=== PATIENT | female | born 1960 | race Hispanic/Latino ===

== ENCOUNTER 2018-12-26 10:42 | Emergency (ER) | payer OTHER ==
[2018-12-26 10:46] VITALS: BMI 34.3
[2018-12-26] MEDS ORDERED: Labetalol 25mg/5ml Syringe IVP STA (13:39)
[2018-12-26] MEDS ORDERED: Labetalol 5mg/ml (4ml) ONE (14:02)
[2018-12-26 14:21] LABS: BASO # 0.1 K/uL (0.0-0.2); BASO % 0.5 % (0.0-2.0); EOS # 0.1 K/uL (0.0-0.7); EOS % 1.1 % (0.0-4.0); LYMPH # 2.1 K/uL (1.0-4.3); LYMPH % 21.8 % (20.0-40.0); MEAN CELL VOLUME 100.6 fL (81.0-99.0); MEAN CORPUSCULAR HEMOGLOBIN 34.1 pg (27.0-31.0); MEAN CORPUSCULAR HGB CONC 33.9 g/dL (33.0-37.0); MEAN PLATELET VOLUME 9.5 fL (7.2-11.7); MONO # 0.7 K/uL (0.0-0.8); MONO % 7.6 % (0.0-10.0); NEUT # 6.6 K/uL (1.8-7.0); NRBC % 0.1 % (0.0-2.0); RBC 5.21 Mil/uL (3.80-5.20); RED CELL DISTRIBUTION WIDTH 13.9 % (11.5-14.5); WHITE BLOOD COUNT 9.6 K/uL (4.8-10.8)
[2018-12-26 14:23] LABS: HEMOGLOBIN 17.8 g/dL (11.0-16.0)
--- NOTE | 2018-12-26 14:24 | RAD ---
Date of service: 12/26/2018 PROCEDURE: CHEST RADIOGRAPH, 1 VIEW HISTORY: HTN, nausea COMPARISON: 06/13/2013 FINDINGS: LUNGS: Clear. PLEURA: No pneumothorax or pleural fluid seen. CARDIOVASCULAR: No aortic atherosclerotic calcification present. Normal. OSSEOUS STRUCTURES: No significant abnormalities. VISUALIZED UPPER ABDOMEN: Normal. OTHER FINDINGS: None. IMPRESSION: No active disease.
[2018-12-26 14:35] LABS: SQUAMOUS EPITHIAL 2 /hpf (0-5); URINE AMORPHOUS SEDIMENT RARE /ul (<OCC); URINE BACTERIA MOD (<OCC); URINE BILIRUBIN NEGATIVE (NEGATIVE); URINE BLOOD NEGATIVE (NEGATIVE); URINE CLARITY Hazy (Clear); URINE COLOR Amber (YELLOW); URINE GLUCOSE (UA) NORMAL (Normal); URINE LEUKOCYTE ESTERASE 2+ Leu/uL (Negative); URINE PROTEIN NEGATIVE (NEGATIVE); URINE UROBILINOGEN NORMAL mg/dL (0.2-1.0)
[2018-12-26 14:36] LABS: ALB/GLOB RATIO 1.5 (1.0-2.1); ALBUMIN 4.4 g/dL (3.5-5.0); ALT/SGPT 17 U/L (9-52); AST/SGOT 23 U/L (14-36); BLOOD UREA NITROGEN 25 mg/dL (7-17); CALCIUM 9.9 mg/dl (8.6-10.4); GFR NON-AFRICAN AMERICAN 57; LIPASE 41 U/L (23-300)
--- NOTE | 2018-12-26 14:40 | CT ---
Date of service: 12/26/2018 PROCEDURE: CT HEAD WITHOUT CONTRAST. HISTORY: Hypertension, ANDRADE COMPARISON: None available. TECHNIQUE: Axial computed tomography images were obtained through the head/brain without intravenous contrast. Radiation dose: Total exam DLP = 1175.48 mGy-cm. This CT exam was performed using one or more of the following dose reduction techniques: Automated exposure control, adjustment of the mA and/or kV according to patient size, and/or use of iterative reconstruction technique. FINDINGS: HEMORRHAGE: No intracranial hemorrhage. BRAIN: No mass effect or edema. Intracranial atherosclerotic calcifications. Scattered periventricular and subcortical white matter hypodensities, which are nonspecific, but often seen with chronic microvascular ischemic disease. Bilateral tiny probable thalamic lacunar infarcts. VENTRICLES: No hydrocephalus. CALVARIUM: Unremarkable. PARANASAL SINUSES: Unremarkable as visualized. No significant inflammatory changes. MASTOID AIR CELLS: Unremarkable as visualized. No inflammatory changes. OTHER FINDINGS: None. IMPRESSION: Nonspecific white matter changes. Bilateral tiny probable thalamic lacunar infarcts. Please note that MRI with diffusion imaging is more sensitive in the detection of acute ischemic event.
[2018-12-26 16:01] VITALS: BP 194/90; PULSE 90; RESP 18; TEMP 97.4; O2SAT 95
--- NOTE | 2018-12-26 16:29 | C.PDOC ---
History Of Present Illness 58 y/o female, w/PMhx of HTN, presents to the ER complaining of feeling lightheaded and nauseous for the past 5 days. Patient states that she has stopped taking her HTN medications and she has not seen her PMD for 3 years. Patient reports that she drinks coffee everyday. She is also complaining of intermittent atraumatic right arm pain. Denies having fever,chills, CP, SOB, vomiting, weakness and numbness of arms. Time Seen by Provider: 12/26/18 12:47 Chief Complaint (Nursing): GI Problem History Per: Patient History/Exam Limitations: no limitations Onset/Duration Of Symptoms: Days Current Symptoms Are (Timing): Still Present Severity: Moderate Past Medical History Reviewed: Historical Data, Nursing Documentation, Vital Signs Vital Signs: Last Vital Signs Temp 97.4 F L 12/26/18 15:59 Pulse 90 12/26/18 15:59 Resp 18 12/26/18 15:59 BP 194/90 H 12/26/18 15:59 Pulse Ox 95 12/26/18 15:59 - Medical History PMH: Comment Only: HTN (pt denies) Other Surgeries: Hx of surgeries - [facility] Procedures PACKED CELL TRANSFUSION (05/29/13) VASC SHUNT & BYPASS NEC (05/29/13) Family History: States: No Known Family Hx - Social History Hx Alcohol Use: No Hx Substance Use: No - Immunization History Hx Influenza Vaccination: No Hx Pneumococcal Vaccination: No Review Of Systems Except As Marked, All Systems Reviewed And Found Negative. Constitutional: Negative for: Fever, Chills Cardiovascular: Negative for: Chest Pain Respiratory: Negative for: Shortness of Breath Gastrointestinal: Positive for: Nausea. Negative for: Vomiting, Abdominal Pain Musculoskeletal: Positive for: Arm Pain (right arm pain) Neurological: Positive for: Dizziness Physical Exam - Physical Exam Appears: Non-toxic, No Acute Distress Skin: Normal Color, Warm, Dry Head: Atraumatic, Normacephalic Eye(s): bilateral: Normal Inspection, PERRL, EOMI Nose: Normal Oral Mucosa: Moist Neck: Normal ROM, No Midline Cervical Tenderness, No Paracervical Tenderness Chest: Symmetrical Cardiovascular: Rhythm Regular Respiratory: Normal Breath Sounds, No Rales, No Rhonchi, No Wheezing Gastrointestinal/Abdominal: Normal Exam, Soft, No Tenderness, No Guarding, No Rebound Extremity: Normal ROM, No Tenderness, No Deformity, No Swelling Neurological/Psych: Oriented x3, Normal Speech, Normal Cognition, Normal Cranial Nerves, Normal Motor, Normal Sensation ED Course And Treatment - Laboratory Results Result Diagrams: 12/26/18 14:10 12/26/18 14:10 Lab Results: Total Bilirubin 0.7 mg/dL (0.2-1.3) 12/26/18 14:10 AST 23 U/L (14-36) 12/26/18 14:10 ALT 17 U/L (9-52) 12/26/18 14:10 Alkaline Phosphatase 129 U/L (38-126) H 12/26/18 14:10 Total Protein 7.4 g/dL (6.3-8.3) 12/26/18 14:10 Albumin 4.4 g/dL (3.5-5.0) 12/26/18 14:10 Globulin 2.9 gm/dL (2.2-3.9) 12/26/18 14:10 Albumin/Globulin Ratio 1.5 (1.0-2.1) 12/26/18 14:10 Lipase 41 U/L (23-300) 12/26/18 14:10 Urine Color Hannah (YELLOW) 12/26/18 14:15 Urine Clarity Hazy (Clear) 12/26/18 14:15 Urine pH 7.0 (5.0-8.0) 12/26/18 14:15 Ur Specific Kite 1.018 (1.003-1.030) 12/26/18 14:15 Urine Protein Negative mg/dL (NEGATIVE) 12/26/18 14:15 Urine Glucose (UA) Normal mg/dL (Normal) 12/26/18 14:15 Urine Ketones Negative mg/dL (NEGATIVE) 12/26/18 14:15 Urine Blood Negative (NEGATIVE) 12/26/18 14:15 Urine Nitrate Positive (NEGATIVE) H 12/26/18 14:15 Urine Bilirubin Negative (NEGATIVE) 12/26/18 14:15 Urine Urobilinogen Normal mg/dL (0.2-1.0) 12/26/18 14:15 Ur Leukocyte Esterase 2+ Torres/uL (Negative) H 12/26/18 14:15 Urine WBC (Auto) 68 /hpf (0-5) H 12/26/18 14:15 Urine RBC (Auto) 2 /hpf (0-3) 12/26/18 14:15 Ur Squamous Epith Cells 2 /hpf (0-5) 12/26/18 14:15 Amorphous Sediment Rare /ul (<OCC) H 12/26/18 14:15 Urine Bacteria Mod (<OCC) H 12/26/18 14:15 Hyaline Casts 3-5 /lpf (0-2) H 12/26/18 14:15 O2 Sat by Pulse Oximetry: 95 (RA) Pulse Ox Interpretation: Normal - Other Rad CXR X-Ray: Viewed By Me, Read By Radiologist Interpretation: Date of service: 12/26/2018. PROCEDURE: CHEST RADIOGRAPH, 1 VIEW. HISTORY: HTN, nausea. COMPARISON: 06/13/2013. FINDINGS: LUNGS: Clear. PLEURA: No pneumothorax or pleural fluid seen. CARDIOVASCULAR: No aortic atherosclerotic calcification present. Normal. OSSEOUS STRUCTURES: No significant abnormalities. VISUALIZED UPPER ABDOMEN: Normal. OTHER FINDINGS: None. IMPRESSION: No active disease. - CT Scan/US CT-Head Other Rad Studies (CT/US): Read By Radiologist, Radiology Report Reviewed CT/US Interpretation: Date of service: 12/26/2018. PROCEDURE: CT HEAD WITHOUT CONTRAST. HISTORY: Hypertension, ANDRADE. COMPARISON: None available. TECHNIQUE: Axial computed tomography images were obtained through the head/brain without intravenous contrast. Radiation dose: Total exam DLP = 1175.48 mGy-cm. This CT exam was performed using one or more of the following dose reduction techniques: Automated exposure control, adjustment of the mA and/or kV according to patient size, and/or use of iterative reconstruction technique. FINDINGS: HEMORRHAGE: No intracranial hemorrhage. BRAIN: No mass effect or edema. Intracranial atherosclerotic calcifications. Scattered periventricular and subcortical white matter hypodensities, which are nonspecific, but often seen with chronic microvascular ischemic disease. Bilateral tiny probable thalamic lacunar infarcts. VENTRICLES: No hydrocephalus. CALVARIUM: Unremarkable. PARANASAL SINUSES: Unremarkable as visualized. No significant inflammatory changes. MASTOID AIR CELLS: Unremarkable as visualized. No inflammatory changes. OTHER FINDINGS: None. IMPRESSION: Nonspecific white matter changes. Bilateral tiny probable thalamic lacunar infarcts. Please note that MRI with diffusion imaging is more sensitive in the detection of acute ischemic event. Progress Note: Labs, UA,CXR, and CT-Head ordered. Patient treated with Macrobid PO and Trandate IV. On re-evaluation BP slightly down. Patient was offered an observation and brain MRI. Patient declines, stating she can't miss work. Risk of leaving hospital AMA was explained in detailes. Patient verbalized understanding. Disposition - Disposition Disposition: AGAINST MEDICAL ADVICE Disposition Time: 16:47 Condition: FAIR Additional Instructions: Follow up with your PMD LESLIE. Return to ED immediately if you feels worse. Prescriptions: Losartan [Cozaar] 1 tab PO DAILY #30 tab Nitrofurantoin Macrocrystals [Macrobid] 1 cap PO BID #14 cap Instructions: Urinary Tract Infections in Adults, High Blood Pressure in Adults, High Blood Pressure Emergencies, Leaving Against Medical Advice Forms: [employer] ([place]) - Clinical Impression Clinical Impression: Dizziness, Multiple lacunar infarcts, Uncontrolled hypertension, UTI (urinary tract infection) - PA / DIRECT SALES PROFESSIONAL / Resident Statement MD/DO has reviewed & agrees with the documentation as recorded. - Scribe Statement The provider has reviewed the documentation as recorded by the Ean Riley Provider Attestation All medical record entries made by the Finesseibpascual were at my direction and personally dictated by me. I have reviewed the chart and agree that the record accurately reflects my personal performance of the history, physical exam, medical decision making, and the department course for this patient. I have also personally directed, reviewed, and agree with the discharge instructions and disposition.
== END 2018-12-26 17:01 | disposition left against medical advice (07) ==
LOC: C.ER 10:42
DX: N39.0 Urinary tract infection, site not specified (principal); I10 Essential (primary) hypertension; R42 Dizziness and giddiness; I63.81 Other cerebral infarction due to occlusion or stenosis of small artery

== ENCOUNTER 2019-01-06 08:13 | Outpatient (CLI) | payer OTHER | END 2019-01-06 08:14 | disposition home or self-care (01) | LOC: C.MRIC 08:13 ==